=== PATIENT | female | born 1965 | race Caucasian/White ===

== ENCOUNTER 2023-04-02 23:16 | Emergency (ER) | payer OTHER ==
[2023-04-02 23:20] VITALS: BP 158/93; PULSE 90; RESP 18; TEMP 98.1; BMI 26.5
[2023-04-03] MEDS ORDERED: ACETAMINOPHEN 500 MG TABLET (FP) PO ONE (01:03)
[2023-04-03] MEDS ORDERED: ACETAMINOPHEN INJECTION 100 ML IVPB ONE (01:03)
[2023-04-03] MEDS ORDERED: ACETAMINOPHEN 1000 MG/100 ML BAG IVPB ONE (01:04)
[2023-04-03 01:05] LABS: HEMATOCRIT 40.5 % (32.4-45.2); HEMOGLOBIN 13.4 GM/dL (10.7-15.3); LYMPH % 28.5 % (8-40); MCH 28.7 pg (25.7-33.7); MCHC 33.2 g/dl (32.0-36.0); MEAN CELL VOLUME 86.5 fl (80-96); MEAN PLT VOLUME 9.2 fl (7.5-11.1); MONO % 12.5 % (3.8-10.2); PLATELET COUNT 183 10^3/uL (134-434); RBC 4.68 M/mm3 (3.60-5.2); RDW 13.3 % (11.6-15.6); WHITE BLOOD COUNT 3.3 K/mm3 (4.0-10.0)
[2023-04-03 01:17] LABS: INR 1.01 (0.83-1.09); PROTHROMBIN TIME (PATIENT) 11.7 SEC (9.7-13.0)
[2023-04-03 01:20] LABS: ACTIVATED PTT 31.9 SECONDS (25.2-36.5)
[2023-04-03 01:30] LABS: ALBUMIN 3.3 g/dl (3.4-5.0); BLOOD UREA NITROGEN 16.6 mg/dL (7-18); CALCIUM 9.4 mg/dL (8.5-10.1)
[2023-04-03 01:33] LABS: CREATININE 0.7 mg/dL (0.55-1.3)
[2023-04-03 01:35] LABS: BILIRUBIN,TOTAL 0.4 mg/dL (0.2-1); TOT PROT 8.1 g/dl (6.4-8.2)
== END 2023-04-03 05:46 | disposition home or self-care (01) ==
LOC: JERFT 23:16 → JER 23:16 → JERBED 04-03 03:06 → UNDOADMOB 04-03 03:06 → JER 04-03 05:46
PROC: 3E033NZ Introduction of Analgesics, Hypnotics, Sedatives into Peripheral Vein, Percutaneous Approach (ICD-10-PCS; principal; 2023-04-03)
DX: R55 Syncope and collapse (principal); M79.601 Pain in right arm; R42 Dizziness and giddiness; M79.631 Pain in right forearm; M25.521 Pain in right elbow
CPT/HCPCS: 36415; 70450-TC; 71045-TC-FY; 72125-TC; 72128-TC; 73070-TC-RT-FY; 73090-TC-RT-FY; 73110-TC-RT-FY; 73130-TC-RT-FY; 80053; 82962; 84439; 84484; 85025; 85610; 85730; 93005; 93010; 99285-25